=== PATIENT | female | born 1945 | race Caucasian/White ===

== ENCOUNTER 2020-06-26 16:29 | Observation (INO) | payer MEDICARE, OTHER ==
[~2020-06-26] VITALS: Ht 157.5 cm; Wt 65.3 kg
[~2020-06-26 16:29] MED LIST: ASPIRIN LOW DOS81 MG PO; CELEBREX200 MG PO; ULTRAM50 MG PO; Z VERAPAMIL HCL PO; Z.0.ARMOUR THYROID30 PO; Z.0.FUROSEMIDE20 MG PO; Z.0.LOSARTAN-HCTZ1 E PO; Z.0.VITAMIN D1000 UN PO; Z.0.ZOLPIDEM TARTRAT PO
[2020-06-26] MEDS ORDERED: TOPROL XL50 MG PO (16:44)
[2020-06-26 17:27] LABS: BASOPHILS # (AUTO) 0.1 (0.0-0.1); BASOPHILS % 1.1 % (0.0-1.0); EOSINOPHILS # (AUTO) 0.2 (0.0-0.4); HEMATOCRIT 40.1 % (34.2-44.1); HEMOGLOBIN 13.3 g/dL (12.0-16.0); LYMPHOCYTES # (AUTO) 1.6 (1.0-3.2); LYMPHOCYTES % 26.1 % (18.0-39.1); MEAN CORPUSCULAR HEMOGLOBIN 28.7 pg (28-32); MEAN CORPUSCULAR HGB CONC 33.2 g/dL (31-35); MEAN CORPUSCULAR VOLUME 86.6 fL (81-99); MONOCYTES # (AUTO) 0.7 (0.2-0.8); MONOCYTES % 11.5 % (4.4-11.3); NEUTROPHILS # (AUTO) 3.6 (2.1-6.9); PLATELET COUNT 193 x10e3/uL (140-360); RED BLOOD COUNT 4.63 x10e6/uL (3.6-5.1); RED CELL DISTRIBUTION WIDTH 13.3 % (11.7-14.4)
[2020-06-26 17:29] LABS: INR 0.82; PROTHROMBIN TIME 11.8 seconds (11.9-14.5)
[2020-06-26 17:30] LABS: PARTIAL THROMBOPLASTIN TIME 26.6 seconds (23.8-35.5)
[2020-06-26 17:39] LABS: ALBUMIN/GLOBULIN RATIO 1.1 (0.8-2.0); ANION GAP 15.2 mmol/L (8-16); CALCIUM 9.6 mg/dL (8.4-10.2); CREATININE, SERUM 0.95 mg/dL (0.57-1.11); POTASSIUM 3.2 mmol/L (3.5-5.1)
[2020-06-26 17:46] LABS: CREATINE KINASE MB 1.4 ng/mL (0-5.0)
[2020-06-26] MEDS: ASPIRIN 81 MG ENTERIC COATED PO SCH (19:30)
[2020-06-27 01:37] LABS: CREATINE KINASE MB 1.2 ng/mL (0-5.0)
[2020-06-27 08:08] LABS: CREATINE KINASE MB 3.9 ng/mL (0-5.0)
[2020-06-27 08:25] LABS: CHOL/HDL RATIO 5.5 (3.0-3.6)
[2020-06-27] MEDS ORDERED: LIPITOR10 MG PO (10:06)
[2020-06-27] MEDS ORDERED: ASPIRIN CHEW81 MG PO (10:06)
[2020-06-27] MEDS: ASPIRIN 81 MG ENTERIC COATED PO SCH (10:56)
[2020-06-27] MEDS ORDERED: ZITHROMAX500 MG PO (16:53)
[2020-06-27] MEDS ORDERED: HYDROXYCHLOROQ200 MG PO (16:53)
[2020-06-27] MEDS ORDERED: PREDNISONE20 MG PO (16:53)
[2020-06-28] MEDS ORDERED: THYROID 60 MG TAB PO SCH (06:00)
[2020-06-28] MEDS ORDERED: LOSARTAN POTASSIUM 100 MG TAB PO SCH (09:00)
[2020-06-28] MEDS ORDERED: [UNRECOGNIZED DRUG - OTHER] PO SCH (09:00)
[2020-06-28] MEDS ORDERED: LOSARTAN PO SCH (09:00)
[2020-06-28] MEDS ORDERED: THYROID 30 MG PO SCH (09:00)
[2020-06-28] MEDS ORDERED: FUROSEMIDE 20 MG TAB PO SCH (09:00)
[2020-06-28] MEDS ORDERED: HYDROCHLOROTHIAZIDE PO SCH (09:00)
[2020-06-28] MEDS ORDERED: HYDROCHLOROTHIAZIDE 25 MG TAB PO SCH (09:00)
[2020-06-28] MEDS ORDERED: METOPROLOL SUCCINATE 50 MG TAB XL PO SCH (09:00)
[2020-06-28] MEDS ORDERED: ZOLPIDEM TARTRATE 5 MG TAB PO SCH (21:00)
== END 2020-06-27 12:09 | disposition home or self-care (01) ==
LOC: ER 16:59 → ERHOLD 18:15
PROVIDERS: ADMIT Internal Medicine; ATTEND Internal Medicine
DX: R07.89 Other chest pain (principal); U07.1 COVID-19; Z86.73 Personal history of transient ischemic attack (TIA), and cerebral infarction without residual deficits; I10 Essential (primary) hypertension; E78.5 Hyperlipidemia, unspecified; E03.9 Hypothyroidism, unspecified; Z96.643 Presence of artificial hip joint, bilateral; Z96.653 Presence of artificial knee joint, bilateral
CPT/HCPCS: 36415; 70450; 70551; 80053; 80061; 82550 ×2; 82553 ×2; 84484 ×2; 85025; 85610; 85730; 93005; 93306; 93880; 99284; G0378 ×2; U0002